=== PATIENT | female | born 2005 | race Caucasian/White ===

== ENCOUNTER 2025-01-31 11:22 | Outpatient (REF) | payer BC, SELFPAY ==
--- NOTE | ~2025-01-31 | US_ITS ---
EXAMINATION: US TRIPLEX LOWER EXTREMITY, BILATERAL CLINICAL INFORMATION: Swelling both lower extremities. COMPARISON: None available. TECHNIQUE: Color-flow triplex imaging with spectral analysis and compression Doppler were performed on the bilateral lower extremities. FINDINGS: Respiratory variation, normal compression and augmented flow are noted throughout the interrogated common femoral vein, superficial femoral vein, profunda femoral vein, popliteal vein and midcalf peroneal and posterior tibial venous segments, both lower extremities. There is no Zhao's cyst. US/US venous duplex LE BI IMPRESSION: No acute deep venous thrombosis involving the bilateral lower extremities. Negative exam for DVT. Electronically signed by: Camilo Shelton MD 01/31/2025 03:12 PM EDT
--- OUTSIDE RECORDS SUMMARY | 2025-01-31 13:49 | XMS_ITS | Clinical Summary ---
Author Organization [facility] Address [address] [place] [id number] Phone Care Team Providers Care National Accounts Recruiter Name Role Phone Unavailable Primary Care Provider Unavailabl e Allergies No known active allergies Medications naproxen 250 MG tablet Take 250 mg by mouth 2 (two) times a day. 08/20/2020 Active Gabapentin 50 MG tablet 100 mg. 09/07/2022 Active famotidine 20 MG tablet TAKE 1 TABLET BY MOUTH TWICE A DAY FOR 14 DAYS *NOT COVERED 09/07/2022 Active naproxen sodium 275 MG tablet TAKE 1 TABLET BY MOUTH EVERY 12 HOURS FOR 5 DAYS 09/07/2022 Active Medrol 4 MG tablet therapy pack See Instructions, Special Instructions: as directed on package labeling, Dispense Quantity: 1 EA, Refills: 0, Entered: 09/07/22 11:27:00 EST, [facility] 09/07/2022 Active Active Problems Problem Noted Date Diagnosed Date Intractable migraine with aura without status mi grainosus 06/23/2022 Chronic pain of both knees 06/23/2022 Chronic daily headache 07/24/2021 Assessment & Plan (07/24/2021 12:15 PM EDT): Mild, daily, no abnormal findings on neuro exam, nl MRI last year. Taking naproxen daily the past week. Rec calling to scheduled a follow up appointment with [facility] neuro, and consider daily preventative medication, Pt will send me a message to let me know that she booked appointment. Influenza vaccine refused 07/23/2020 Assessment & Plan (07/23/2020 4:00 PM EDT): Refused flu vaccine today in office. Discussed risks and benefits, side effect profile. Advised that most childhood hospitalizations due to flu are in unvaccinated children. Discussed risk in context of COVID pandemic. Recommended/enc vaccine. Pt and mom decline. Weight loss, non-intentional 07/23/2020 Assessment & Plan (07/24/2021 12:16 PM EDT): BMI seems to be stabilizing, Pt denies restricting foods, has GI upset with dairy only, nl labs last year including TSH/celiac. Asked her to RTO for any new/different abdominal issues. Assessment & Plan (07/23/2020 5:19 PM EDT): Long discussion about body image. Labs that were ordered at last years well visit were completed 3 weeks ago and WNL. Pt denies binging, purging, denies abdominal pain, eports normal daily stools, no diarrhea, no bloody stools. Discussed concern for continued wt loss, pt denies trying to loose wt, although she does report exercising for 3 hours per day. At her last well visit it was discussed that she is likely burning more calories than she is taking in. Advised to increase size of meals, increase portion and eat snacks throughout the day. Discussed increase protein in diet. Discussed decreasing exercise to 1 hour daily. Recommended/enc nutrition referral, pt declines. Advised wt check in 6 weeks. Closed head injury 08/21/2019 Overview (08/21/2019): Seen at [facility], No Loc. Jul Resolved Problems Problem Noted Date Diagnosed Date Resolved Date Acute right otitis media 04/28/2018 Assessment & Plan (04/28/2018 11:34 AM EDT): Pt w acute right otitis media in association with viral uri, rec antibiotic rx, sx care, otc antipyretic/pain relievers prn (tylenol or motrin, never asa), recheck as needed Closed fracture of distal end of tibia 06/16/2017 07/07/2018 Immunizations Immunization Administration Dates Next Due COVID-19 Pfizer, seasonal, 12+ years 09/14/2023 DTP / HiB 10/05/2006 DTaP / Hep B / IPV 01/03/2006,2005, 005 DTaP, Unspecified 07/20/2010 HPV Vaccine 9 Valent 01/05/2019,07/07/2018 Hep A, ped/adol 01/08/2020,07/10/2019 HiB 10/05/2006, 6,2005,09/06 IPV 07/16/2009 Influenza 06/25/2009,10/05/2006 Influenza, injectable, quadr ivalent, preservative free 09/14/2023 Influenza, intranasal, trivalent 10/31/2012 MMR 07/20/2010,10/05/2006 Meningococcal B Bexsero 03/23/2023 Meningococcal Conj (Menactra) MCV4P 07/24/2021,0 06/16/2017 Meningococcal Conj (Menquadfi) MCV4TT 09/14/2023 Pneumococcal Conjugate 07/06/2006,2005,2005,09/06 Tdap 06/16/2017 Varicella 02/24/2011,07/06/2006 Family History Medical History Relation Name Comments Thyroid cancer Father Alcoholism Father's Brother Drug abuse Father's Brother Heart disease Father's Brother Melanoma Paternal Grandfather Relation Name Status Comments Father Malignant tumor of thyroid gland Father's Brother Heart disea se Note: smoker and alcohol use. Paternal Grandfather Problem Note: melanoma : 46 Social History Tobacco Use Types Packs/Day Years Used Date Smoking Tobacco: Never Smokeless Tobacco: Never Comments:Never Alcohol Use Standard Drinks/Week Comments No 0 (1 standard drink = 0.6 oz pur e alcohol) Hunger/Food Answer Date Recorded In the last 12 months, did y ou or your family ever eat less than you felt you should because there wasn't enough money for food? No 09/14/2023 Stable Housing Answer Date Recorded Are you worried that in the next 2 months you may not have stable housing? No 09/14/2023 Transportation Concerns Answer Date Rec orded In the last 12 months, have you or your family ever had to go without healthcare because you didn't have a way to get there? No 09/14/2023 Hazards in Home Answer Date Recorded Think about the place you li ve. Do you have problems with any of the following? Pests (mice or roaches), mold, no/not working smoke detectors, water leaks, no window guards. No 2022 Financing Utilities Answer Date Recorde d In the last 12 months, has t he electric, gas, oil, or water company threatened to shut off your services in your home? No 09/14/2023 Safety at Home Answer Date Recorded Are you or your family worried about feeling saf e in your home? No 09/14/2023 Outside Support Answer Date Recorded Do you feel that you need mo re support from other people or programs to help you care for yourself or your family? No 09/14/2023 Understanding Health Concerns Answer Da te Recorded Do you need help understandi ng your or your child's healthcare needs (diagnosis, medications, plan, etc.)? No 09/14/2023 Financing Health Concerns Answer Date R ecorded In the last 12 months, was t here a time when your child needed to see a doctor or get medications or supplies but could not because of cost? No 09/14/2023 Missing School or Work Answer Date Dane rded Did you or your child miss s chool or work because of a health problem that could have been avoided? No 09/14/2023 Comments Unknown Sex and Gender Information Value Date Recorded Sex Assigned at Not on file Legal Sex Female 12:08 PM EST Gender Identity Not on file Sexual Orientation Not on file Last Filed Vital Signs Vital Sign Reading Time Taken Comments Blood Pressure 102/58 09/14/2023 1:33 PM EST Pulse 87 09/14/2023 1:33 PM EST Temperature 36.8 ??C (98.2 ??F) 04/28/2018 1 1:03 AM EDT Respiratory Rate - - Oxygen Saturation 99% 09/14/2023 1:33 PM EST Inhaled Oxygen Concentration - - Weight 48.4 kg (106 lb 12.8 oz) 023 10:46 AM EDT Height 163.2 cm (5' 4.25 ) 09/14/2023 1:33 PM ES T Body Mass Index 18.33 06/08/2023 10:46 AM EDT Body Mass Index Percentile 11.72% 06/08 10:46 AM EDT Growth Chart: CDC (Girls, 2- 20 Years) Plan of Treatment Health Maintenance Due Date Last Done Comments Men B Vaccine (2 of 2 - Bexs ero SCDM 2-dose series) 09/22/2023 03/23/2023 Influenza Vaccines (#1) 2024 09/14/20 23, 10/31/2012, 06/25/2009, Additional history exists COVID-19 Vaccine (4 - 2023-2 5 season) 2024 09/14/2023, 04/08/2021, 03/18/2021 DTaP,Tdap,and Td Vaccines (7 - Td or Tdap) 06/16/2027 06/16/2017, 07/20/2010, 10/05/2006, Additional history exists Hepatitis B Vaccines Completed 01/03/2006, 2005, 2005 Pneumococcal Vaccine Completed 07/06/2006, 01/03/2006, 2005, Additional history exists HIB Vaccines Completed 10/05/2006, 09/23, 01/03/2006, Additional history exists IPV Vaccines Completed 07/16/2009, 12/22, 2005, Additional history exists MMR Vaccines Completed 07/20/2010, 10/05/2006 Varicella Vaccines Completed 02/24/2011, 07/06/2006 HPV Vaccines Completed 01/05/2019, 07/07/2018 Hepatitis A Vaccines Completed 01/08/2020, 07/10/20 19 Meningococcal Vaccine Completed 09/14/2023 , 07/24/2021, 06/16/2017 Procedures * Due to [place] law, this organization might not be sharing sensitive test results. Procedure Name Priority Date/Time Associated Diagnosis Comments CHLAMYDIA AND GONORRHEA, AMPLIFIED Routine 09/14/2023 3:32 PM EST Encounter for screening examination for sexually transmitted disease from Last 3 Months or Most Recently Relevant to Health Maintenance Results * Due to [place] law, this organization might not be sharing sensitive test results. * Chlamydia and Gonorrhoea, Amplified (09/14/2023 3:32 PM EST) Chlamydia trachomatis RNA, TMA NOT DETECTED NOT DETECTED [facility] Neisseria gonorrhoeae, LUIS NOT DETECTED NOT DETECTED [facility] Comment [facility] Comment: The analytical performance characteristics of this assay, when used to test SurePath(TM) specimens have been determined by [facility]. The modifications have not been cleared or approved by the FDA. This assay has been validated pursuant to the CLIA regulations and is used for clinical purposes. For additional information, please refer to https://[employer].CrossCore/faq/CXZ333 (This link is being provided for information/ educational purposes only.) Urine (Urine) 09/14/2023 3:3 2 PM EST 09/15/2023 5:02 AM EST Narrative Resulting Agency Comment Performing Organization Information: ?Site ID: [id number] ?Name: [facility] [place] [facility] ?Address: [address] [place] [id number] ?Director: Corry Casey Bita Skelton MD LAB MICROBIOLOGY - GENERAL O RDERABLES Final Result [employer] [place] [employer] from Last 3 Months or Most Recently Relevant to Health Maintenance Insurance [facility] HMO
--- OUTSIDE RECORDS SUMMARY | 2025-01-31 13:49 | XMS_ITS | Encounter Summary ---
Author Organization [facility] Address [address] [place] [id number] Phone Care Team Providers Care Cylinder Press Operator Apprentice Name Role Phone Bita Skelton MD Primary Care Provider Encounter Details Date Type Department Care Team (Late st Contact Info) Description 12/22/2017 Conversion Encounter [facility] [place] [address] [place] [address] Negro Ronquillo MD Social History Tobacco Use Types Packs/Day Years Used Date Smoking Tobacco: Never Comments:Never Comments Unknown Sex and Gender Information Value Date Recorded Sex Assigned at Not on file Legal Sex Female 12:08 PM EST Gender Identity Not on file Sexual Orientation Not on file documented as of this encounter Plan of Treatment Not on file documented as of this encounter Visit Diagnoses Not on filedocumented in this encounter Care Teams Cylinder Press Operator Apprentice Relationship Specialty Start Date End Date Bita Skelton MD [address] [place] [address] PCP - General Pediatrics 12/16/20 09/12/24 documented as of this encounter
== END 2025-01-31 11:23 | disposition home or self-care (01) ==
LOC: HO.UMASIMG 11:22
PROVIDERS: Visit Provider Family Medicine
DX: R60.0 Localized edema (principal)
CPT/HCPCS: 93970

== ENCOUNTER → 2025-01-31 14:30 | Outpatient (BNV) | payer BC, SELFPAY | PROVIDERS: Visit Provider Radiology Diagnostic Radiology | DX: R22.43 Localized swelling, mass and lump, lower limb, bilateral (principal) | CPT/HCPCS: 93970 ==